=== PATIENT | male | born 2000 | race Hispanic/Latino ===

== ENCOUNTER 2021-02-22 22:35 | Emergency (ER) | payer OTHER ==
[~2021-02-22] VITALS: Ht 182.9 cm; Wt 129.3 kg
[2021-02-22 22:37] VITALS: BP 176/80
[2021-02-23] MEDS ORDERED: CLINDAMYCIN 150 MG CAP PO ONE (00:30)
[2021-02-23] MEDS ORDERED: CEFTRIAXONE 1G VIAL IM ONE (00:30)
[2021-02-23] MEDS ORDERED: KETOROLAC 60 MG VIAL (30MG/ML) IM ONE (00:30)
[2021-02-23] MEDS ORDERED: CLIN-141 PO (00:36)
[2021-02-23] MEDS ORDERED: LIDOCAINE HCL-MPF 1% 2ML VIAL ONE (00:39)
[2021-02-23] MEDS ORDERED: KETOROLAC 60 MG VIAL (30MG/ML) ONE (00:39)
[2021-02-23] MEDS ORDERED: CLINDAMYCIN 150 MG CAP ONE (00:39)
[2021-02-23] MEDS ORDERED: CEFTRIAXONE 1G VIAL ONE (00:40)
== END 2021-02-23 00:57 | disposition home or self-care (01) ==
LOC: EDH 22:35
DX: L05.92 Pilonidal sinus without abscess (principal); Z79.1 Long term (current) use of non-steroidal anti-inflammatories (NSAID)
CPT/HCPCS: 96372 ×2; 99284; J0696; J1885; J3490

== ENCOUNTER 2023-03-26 13:35 | Emergency (ER) | payer OTHER, BC ==
[~2023-03-26] VITALS: Ht 182.9 cm; Wt 117.9 kg
[~2023-03-26 13:35] MED LIST: CLIN-141 PO
[2023-03-26] MEDS ORDERED: KETOROLAC 30MG VIAL (30MG/ML) IM ONE (15:30)
[2023-03-26] MEDS ORDERED: NAPR-1180 PO (16:17)
[2023-03-26] MEDS ORDERED: LIDOP TP (16:17)
[2023-03-26 16:43] VITALS: BP 132/84; PULSE 65; RESP 17; O2SAT 99
== END 2023-03-26 16:44 | disposition home or self-care (01) ==
LOC: EDH 13:35
DX: R07.81 Pleurodynia (principal); Z90.49 Acquired absence of other specified parts of digestive tract; V89.2XXA Person injured in unspecified motor-vehicle accident, traffic, initial encounter; Y93.89 Activity, other specified; Y92.89 Other specified places as the place of occurrence of the external cause; Y99.8 Other external cause status
CPT/HCPCS: 99283; 71101; 96372; J1885